=== PATIENT | female | born 2000 | race African-American/Black ===

== ENCOUNTER 2021-01-23 10:30 | Day surgery (SDC) | payer OTHER, SELFPAY ==
[2021-01-23 11:38] LABS: Bilirubin Neg (Negative); Blood, Urine 25 (Negative); Clarity Slightly Cloudy (Clear); Glucose, Urine (Dipstick) Normal (Negative); Ketone, Urine 5 mg/dL (Negative); Leukocyte 25 (Negative); Nitrite Negative (Negative); Protein, Urine (Dipstick) 30 mg/dl (Neg-Trace); Specific Gravity, Urine 1.025 (1.002-1.036)
[2021-01-23 11:44] LABS: Urine Culture Reflex No No
[2021-01-23 11:49] LABS: Bacteria/HPF 3+ HPF (None Seen); Squamous Epithelial 21-50 HPF (0-3); Transitional Epithelial 0-3 HPF (None Seen)
[2021-01-23 14:15] LABS: #Eosinphils 0.1 10x3/uL (0.0-0.5); #Monocytes 0.5 10x3/uL (0.0-1.1); #Neutrophils 4.5 10x3/uL (1.5-8.4); %Basophils 0.3 % (0.0-2.0); %Eosinophils 1.2 % (0.0-6.0); %Monocytes 6.5 % (0.0-10.0); %Neutrophils 65.7 % (40.0-75.0); Hemoglobin 11.2 g/dL (12.0-15.5); Mean Corpuscular Hemoglobin 30.6 pg (27.0-33.0); Mean Corpuscular Volume 92.6 fl (81.6-98.3); Mean Platelet Volume 9.6 fl (7.4-10.4); Platelet Count 365 10x3/uL (150-450); RBC Distribution Width 12.7 % (11.5-14.5); Red Blood Cell (RBC) Count 3.66 10x6/uL (3.90-5.03); White Blood Cell (WBC) Count 6.9 10x3/uL (3.5-10.5)
[2021-01-23 14:16] LABS: ALT (SGPT) 9 U/L (8-55); AST (SGOT) 10 U/L (5-34); Albumin 3.5 g/dL (3.5-5.0); Alkaline Phosphatase 96 U/L (40-110); Anion Gap 12 mmol/L (10-20); BUN (Urea Nitrogen) 7 mg/dL (7.0-18.7); Bilirubin, Total 0.4 mg/dL (0.2-1.2); Calc. Creatinine Clearance 0 mL/min (70-130); Calcium 9.4 mg/dL (7.8-10.44); Carbon Dioxide 19 mmol/L (22-29); Chloride 108 mmol/L (98-107); Glucose 106 mg/dL (70-105); Potassium 3.7 mmol/L (3.5-5.1); Protein, Total 7.5 g/dL (6.0-8.3); Sodium 135 mmol/L (136-145)
[2021-01-23 15:25] LABS: Syphilis Antibody Nonreactive (Nonreactive); Syphilis Antibody Index 0.09 S/CO (<1.00 Non-Reactive)
== END 2021-01-23 15:15 | disposition home or self-care (01) ==
LOC: CSHLD/OP 10:30
PROVIDERS: ATTEND Family Medicine
DX: O10.013 Pre-existing essential hypertension complicating pregnancy, third trimester (principal); O24.419 Gestational diabetes mellitus in pregnancy, unspecified control; Z3A.31 31 weeks gestation of pregnancy; Z21 Asymptomatic human immunodeficiency virus [HIV] infection status; Z79.84 Long term (current) use of oral hypoglycemic drugs; Z79.899 Other long term (current) drug therapy
CPT/HCPCS: 80053; 81001; 84443; 85025; 86780; 87086; 93005; 93010

== ENCOUNTER 2021-03-10 08:48 | Outpatient (CLI) | payer OTHER ==
[2021-03-12 14:14] LABS: SARS-CoV-2 PCR by NAA Not Detected (NotDetected)
== END 2021-03-10 08:49 | disposition home or self-care (01) ==
LOC: CSHLAB 08:48
PROVIDERS: ATTEND Family Medicine
DX: Z20.822 Contact with and (suspected) exposure to COVID-19 (principal)
CPT/HCPCS: U0003; U0005

== ENCOUNTER 2021-03-14 17:58 | Inpatient (IN) | payer OTHER ==
[2021-03-14 19:13] VITALS: BMI 40.4
[2021-03-14] MEDS ORDERED: Ondansetron PF 4 MG/2 ML Vial IVP PRN ×2 (19:55→23:48)
[2021-03-14] MEDS ORDERED: hydrALAZINE 20 MG/ML VIAL SLOW IVP PRN (19:55)
[2021-03-14] MEDS ORDERED: Acetaminophen 500 MG TAB PO PRN (19:55)
[2021-03-14] MEDS ORDERED: Promethazine HCl 25 MG/ML VIAL IM PRN ×2 (19:55→23:48)
[2021-03-14] MEDS ORDERED: Lactated Ringer's 1,000 ML IV SCH ×2 (20:00→20:45)
[2021-03-14] MEDS ORDERED: Misoprostol 200 MCG TAB PR PRN (20:03)
[2021-03-14] MEDS ORDERED: Diphenoxylate HCl/Atropine Tablet PO PRN (20:03)
[2021-03-14] MEDS ORDERED: Carboprost 250 MCG/ML AMP IM PRN (20:03)
[2021-03-14] MEDS ORDERED: Ibuprofen 800 MG TAB PO PRN (20:03)
[2021-03-14] MEDS ORDERED: Lidocaine 1% (PF) 30 ML VIAL SC PRN (20:03)
[2021-03-14] MEDS ORDERED: HumaLOG 300 UNITS/3 ML VIAL SC PRN ×2 (20:08)
[2021-03-14] MEDS ORDERED: Dextrose 50% Abboject 50 ML SYRINGE SLOW IVP PRN (20:08)
[2021-03-14] MEDS ORDERED: Dextrose 5% in Water 1,000 ML IV PRN (20:08)
[2021-03-14 20:14] LABS: #Eosinphils 0.1 10x3/uL (0.0-0.5); #Monocytes 0.7 10x3/uL (0.0-1.1); #Neutrophils 4.5 10x3/uL (1.5-8.4); %Basophils 0.5 % (0.0-2.0); %Eosinophils 1.4 % (0.0-6.0); %Neutrophils 58.7 % (40.0-75.0); Hemoglobin 12.1 g/dL (12.0-15.5); Mean Corpuscular HGB CONC 33.5 g/dL (32.0-36.0); Mean Corpuscular Hemoglobin 31.3 pg (27.0-33.0); Mean Corpuscular Volume 93.5 fl (81.6-98.3); Mean Platelet Volume 10.5 fl (7.4-10.4); Platelet Count 403 10x3/uL (150-450); RBC Distribution Width 13.4 % (11.5-14.5); Red Blood Cell (RBC) Count 3.86 10x6/uL (3.90-5.03); White Blood Cell (WBC) Count 7.7 10x3/uL (3.5-10.5)
[2021-03-14] MEDS ORDERED: NS w/ Oxytocin 30 units 500 ML IV SCH (20:15)
[2021-03-14] MEDS ORDERED: Penicillin G Potassium 5 MILL.UNITS in Sodium Chloride 0.9% 100 ML IVPB SCH (20:15)
[2021-03-14] MEDS ORDERED: Zidovudine 200 MG/20 ML VIAL IVPB SCH ×2 (20:15→21:15)
[2021-03-14 20:26] LABS: ALT (SGPT) 13 U/L (8-55); AST (SGOT) 13 U/L (5-34); Albumin 3.6 g/dL (3.5-5.0); Alkaline Phosphatase 155 U/L (40-110); Anion Gap 14 mmol/L (10-20); BUN (Urea Nitrogen) 10 mg/dL (7.0-18.7); Bilirubin, Total 0.4 mg/dL (0.2-1.2); Calc. Creatinine Clearance 246 mL/min (70-130); Calcium 9.9 mg/dL (7.8-10.44); Carbon Dioxide 19 mmol/L (22-29); Chloride 105 mmol/L (98-107); Globulin 4.2 g/dL (2.4-3.5); Glucose 79 mg/dL (70-105); Potassium 4.4 mmol/L (3.5-5.1); Protein, Total 7.8 g/dL (6.0-8.3); Sodium 134 mmol/L (136-145)
[2021-03-14 20:43] LABS: Hep B Surf Ag Non-Reactive S/CO (NonReactive); Syphilis Antibody Nonreactive (Nonreactive); Syphilis Antibody Index 0.07 S/CO (<1.00 Non-Reactive)
[2021-03-14 20:44] LABS: HBSAg Index 0.16 S/CO (0-0.99)
[2021-03-14] MEDS ORDERED: Labetalol 100 MG TAB PO SCH (21:00)
[2021-03-14] MEDS ORDERED: Calcium Gluc 4.6 MEQ/10 ML (100 MG/ML) SLOW IVP PRN (21:47)
[2021-03-14] MEDS ORDERED: Magnesium Sulfate 20 gm/500 ml 20 GM/500 ML BAG ONE (21:51)
[2021-03-14] MEDS ORDERED: DEXTROSE 5% IVPB SCH (22:00)
[2021-03-14] MEDS ORDERED: WATER IVPB SCH (22:00)
[2021-03-14] MEDS ORDERED: ZIDOVUDINE IVPB SCH (22:00)
[2021-03-14] MEDS ORDERED: Magnesium Sulfate 20 gm/500 ml 20 GM/500 ML BAG IVPB SCH (22:00)
[2021-03-14] MEDS ORDERED: Magnesium Sulfate 20 GM/WATER 500 ML BAG IVPB SCH (22:00)
[2021-03-14] MEDS ORDERED: Ondansetron PF 4 MG/2 ML Vial ONE (22:25)
[2021-03-14] MEDS ORDERED: Morphine PF 10 MG/10 ML VIAL ONE (22:25)
[2021-03-14] MEDS ORDERED: Oxytocin 10 UNITS/ML VIAL ONE (22:26)
[2021-03-14] MEDS ORDERED: Zidovudine 400 MG in Dextrose 5% in Water 250 ML IVPB SCH (23:00)
[2021-03-14] MEDS ORDERED: Communication Order-Pharmacy FS SCH (23:45)
[2021-03-14] MEDS ORDERED: Ketorolac Tromethamine 30 MG/ML VIAL IVP SCH (23:45)
[2021-03-14] MEDS ORDERED: diphenhydrAMINE 50 MG/ML VIAL IVP PRN (23:48)
[2021-03-14] MEDS ORDERED: Naloxone HCl 0.4 mg/ml Vial IV PRN (23:48)
[2021-03-14] MEDS ORDERED: Naloxone HCl 0.4 mg/ml Vial IVP PRN ×2 (23:48)
[2021-03-14] MEDS ORDERED: Hydrocerin (Eucerin) Cream 120 gm Jar TOP PRN (23:48)
[2021-03-14] MEDS ORDERED: Ondansetron HCl/PF 4 MG/2 ML Vial IVP PRN (23:48)
[2021-03-14] MEDS ORDERED: Meperidine HCl/PF 25 MG/ML VIAL SLOW IVP PRN (23:48)
[2021-03-14] MEDS ORDERED: Fentanyl 100 MCG/2 ML VIAL SLOW IVP PRN (23:48)
[2021-03-14] MEDS ORDERED: Promethazine HCl 25 MG SUPP PR PRN (23:48)
[2021-03-14] MEDS ORDERED: Ketorolac Tromethamine 30 MG/ML VIAL IVP PRN (23:48)
[2021-03-15] MEDS ORDERED: Penicillin G 2.5 MILL.units 2.5 MILL.UNITS in Premix Bag 1 BAG IVPB SCH (02:00)
[2021-03-15] MEDS ORDERED: metFORMIN 500 MG TAB PO SCH (08:00)
[2021-03-15] MEDS ORDERED: Acetaminophen 325 MG TAB PO PRN (08:57)
[2021-03-15] MEDS ORDERED: Lanolin Ointment 7 GM TUBE TOP PRN (08:57)
[2021-03-15] MEDS ORDERED: hydrALAZINE 20 MG/ML VIAL SLOW IVP PRN (08:57)
[2021-03-15] MEDS ORDERED: Ondansetron PF 4 MG/2 ML Vial IVP PRN (08:57)
[2021-03-15] MEDS ORDERED: Magnesium Sulfate 20 gm/500 ml 20 GM/500 ML BAG IVPB SCH ×2 (08:57→18:45)
[2021-03-15] MEDS ORDERED: Simethicone Chewable 80 MG TAB PO PRN (08:57)
[2021-03-15] MEDS ORDERED: Calcium Gluconate 4.6 MEQ in Sodium Chloride 0.9% 100 ML IVPB PRN (08:57)
[2021-03-15] MEDS ORDERED: diphenhydrAMINE 25 MG CAP PO PRN (08:57)
[2021-03-15] MEDS ORDERED: Prenatal Vitamin 1 TAB PO SCH (09:00)
[2021-03-15] MEDS: Emtricitabine/Tenofovir 200-300 MG TAB PO SCH (10:04)
[2021-03-15] MEDS: Raltegravir Potassium 400 MG TAB PO SCH ×2 (10:05→21:45)
[2021-03-15 11:02] LABS: pH (Cord, venous) 7.145 (7.250-7.350)
[2021-03-15] MEDS ORDERED: HYDROcodone/Acetaminophen 5/325 mg Tablet PO PRN (11:45)
[2021-03-15] MEDS ORDERED: Magnesium Sulfate 20 gm/500 ml 20 GM/500 ML BAG ONE (17:20)
[2021-03-15 18:00] LABS: Magnesium 4.4 mg/dL (1.6-2.6)
[2021-03-15] MEDS: Labetalol 100 MG TAB PO SCH (19:42)
[2021-03-15] MEDS: Ferrous Sulfate 325 MG TAB PO SCH (21:44)
[2021-03-16] MEDS: Ibuprofen 800 MG TAB PO SCH ×3 (05:12→21:00)
[2021-03-16 05:28] LABS: Hemoglobin 10.7 g/dL (12.0-15.5); Mean Corpuscular HGB CONC 33.9 g/dL (32.0-36.0); Mean Corpuscular Hemoglobin 31.4 pg (27.0-33.0); Mean Corpuscular Volume 92.7 fl (81.6-98.3); Mean Platelet Volume 9.9 fl (7.4-10.4); Platelet Count 318 10x3/uL (150-450); RBC Distribution Width 13.4 % (11.5-14.5); Red Blood Cell (RBC) Count 3.41 10x6/uL (3.90-5.03); White Blood Cell (WBC) Count 6.5 10x3/uL (3.5-10.5)
[2021-03-16] MEDS: Ferrous Sulfate 325 MG TAB PO SCH ×3 (08:12→21:05)
[2021-03-16] MEDS: Prenatal Vitamin 1 TAB PO SCH ×2 (08:31→08:45)
[2021-03-16] MEDS: Emtricitabine/Tenofovir 200-300 MG TAB PO SCH (08:45)
[2021-03-16] MEDS: HYDROcodone/Acetaminophen 5/325 mg Tablet PO PRN ×2 (08:45→15:41)
[2021-03-16] MEDS: Raltegravir Potassium 400 MG TAB PO SCH ×2 (08:45→21:00)
[2021-03-16] MEDS: metFORMIN 500 MG TAB PO SCH ×2 (08:45→16:48)
[2021-03-16] MEDS: Labetalol 100 MG TAB PO SCH ×2 (08:45→20:59)
[2021-03-16] MEDS ORDERED: Boostrix 0.5 ML (Tdap) VIAL IM ONE (08:57)
[2021-03-17] MEDS: Ibuprofen 800 MG TAB PO SCH (05:02)
[2021-03-17] MEDS: Emtricitabine/Tenofovir 200-300 MG TAB PO SCH (08:27)
[2021-03-17] MEDS: Prenatal Vitamin 1 TAB PO SCH (08:27)
[2021-03-17] MEDS: metFORMIN 500 MG TAB PO SCH (08:27)
[2021-03-17] MEDS: Raltegravir Potassium 400 MG TAB PO SCH (08:28)
[2021-03-17] MEDS: Ferrous Sulfate 325 MG TAB PO SCH (08:28)
[2021-03-17] MEDS ORDERED: Labetalol 100 MG TAB PO SCH (09:00)
[2021-03-17] MEDS ORDERED: Polyethylene Glycol 3350 17 GM Packet PO SCH (11:15)
[2021-03-17 12:07] VITALS: BP 137/65; TEMP 98.2
== END 2021-03-17 14:25 | disposition home or self-care (01) | DRG 787 ==
LOC: CSHLD 17:58 → CSHPP 03-16 02:41
PROVIDERS: ADMIT Emergency Medicine; ATTEND Emergency Medicine
PROC: 10D00Z1 Extraction of Products of Conception, Low, Open Approach (ICD-10-PCS; principal; 2021-03-15)
DX: O11.4 Pre-existing hypertension with pre-eclampsia, complicating childbirth (principal); Z37.0 Single live birth; Z3A.38 38 weeks gestation of pregnancy; O98.72 Human immunodeficiency virus [HIV] disease complicating childbirth; B20 Human immunodeficiency virus [HIV] disease; O10.92 Unspecified pre-existing hypertension complicating childbirth; O99.824 Streptococcus B carrier state complicating childbirth; O24.425 Gestational diabetes mellitus in childbirth, controlled by oral hypoglycemic drugs; O76 Abnormality in fetal heart rate and rhythm complicating labor and delivery; Z79.899 Other long term (current) drug therapy; Z79.82 Long term (current) use of aspirin; Z82.79 Family history of other congenital malformations, deformations and chromosomal abnormalities
CPT/HCPCS: 36415; 51702; 80053; 82570; 82805; 83735; 84156; 85025; 85027; 86780; 86850; 86900; 86901; 87340; 88307; 93005; 93010; J2274; J2405; J2590; J3475; J3485; J7070; J7120

== ENCOUNTER 2023-02-18 17:00 | Inpatient (IN) | payer OTHER ==
[2023-02-19] MEDS ORDERED: Carboprost 250 MCG/ML AMP IM PRN (15:29)
[2023-02-19] MEDS ORDERED: Ondansetron PF 4 MG/2 ML Vial IVP PRN ×4 (15:29→21:31)
[2023-02-19] MEDS ORDERED: Misoprostol 200 MCG TAB PR PRN ×2 (15:29→21:31)
[2023-02-19] MEDS ORDERED: Promethazine HCl 25 MG/ML VIAL IM PRN ×3 (15:29→21:31)
[2023-02-19] MEDS ORDERED: Famotidine/PF 20 mg/2ml Vial SLOW IVP PRN (15:29)
[2023-02-19] MEDS ORDERED: Tranexamic Acid 1,000 MG/10 ML VIAL IVP PRN (15:29)
[2023-02-19] MEDS ORDERED: Bicitra 30 ML UDCUP PO PRN (15:29)
[2023-02-19] MEDS ORDERED: hydrALAZINE 20 MG/ML VIAL SLOW IVP PRN ×4 (15:29→21:31)
[2023-02-19] MEDS ORDERED: Lactated Ringer's 1,000 ML IV SCH (15:30)
[2023-02-19] MEDS ORDERED: CEFAZOLIN 2 GM in Sodium Chloride 0.9% 100 ML IVPB SCH (15:30)
[2023-02-19] MEDS ORDERED: Oxytocin 30 units/NS 500 ML 500 ML IV SCH ×2 (15:30→21:31)
[2023-02-19 15:47] VITALS: BMI 43.6
[2023-02-19] MEDS ORDERED: Naloxone HCl 0.4 mg/ml Vial IVP PRN ×2 (16:43)
[2023-02-19] MEDS ORDERED: Naloxone HCl 0.4 mg/ml Vial IV PRN (16:43)
[2023-02-19] MEDS ORDERED: Promethazine HCl 25 MG SUPP PR PRN (16:43)
[2023-02-19] MEDS ORDERED: diphenhydrAMINE 50 MG/ML VIAL IVP PRN (16:43)
[2023-02-19] MEDS ORDERED: Meperidine HCl/PF 25 MG/ML VIAL SLOW IVP PRN (16:43)
[2023-02-19] MEDS ORDERED: fentaNYL 50 mcg/mL 1 mL Vial SLOW IVP PRN (16:43)
[2023-02-19] MEDS ORDERED: Moisturizing Cream (Eucerin) 113 GM JAR TOP PRN (16:43)
[2023-02-19] MEDS ORDERED: Communication Order-Pharmacy FS SCH (16:45)
[2023-02-19] MEDS ORDERED: Phenylephrine 40 MG/NS 250 ML 250 ML ONE (16:50)
[2023-02-19] MEDS ORDERED: Morphine PF 10 MG/10 ML VIAL ONE (16:50)
[2023-02-19] MEDS ORDERED: fentaNYL 50 mcg/mL 1 mL Vial ONE (16:50)
[2023-02-19] MEDS ORDERED: Sodium Bicarbonate 2.5 MEQ/5 ML VIAL ONE (16:50)
[2023-02-19 16:55] LABS: Hematocrit 34.9 % (34.9-44.5); Hemoglobin 11.9 g/dL (12.0-15.5); Mean Corpuscular HGB CONC 34.1 g/dL (32.0-36.0); Mean Corpuscular Hemoglobin 31.6 pg (27.0-33.0); Mean Corpuscular Volume 92.8 fl (81.6-98.3); Mean Platelet Volume 9.9 fl (7.4-10.4); Platelet Count 369 10x3/uL (150-450); Red Blood Cell (RBC) Count 3.76 10x6/uL (3.90-5.03); White Blood Cell (WBC) Count 6.6 10x3/uL (3.5-10.5)
[2023-02-19 16:56] LABS: Glucose 81 mg/dL (70-105)
[2023-02-19 17:08] LABS: HBSAg Index 0.16 S/CO (0-0.99); Hep B Surf Ag - L&D Non-Reactive S/CO (NonReactive)
[2023-02-19 17:09] LABS: Syphilis Antibody Nonreactive (Nonreactive)
[2023-02-19] MEDS ORDERED: Ondansetron PF 4 MG/2 ML Vial ONE (17:34)
[2023-02-19] MEDS ORDERED: Dexamethasone 4 mg/ml Vial ONE (17:34)
[2023-02-19] MEDS ORDERED: Carboprost 250 MCG/ML AMP ONE (17:57)
[2023-02-19] MEDS ORDERED: Tranexamic Acid 1,000 MG/10 ML VIAL ONE (17:57)
[2023-02-19] MEDS ORDERED: Oxytocin 30 units/NS 500 ML 0 ML ONE (17:57)
[2023-02-19] MEDS ORDERED: Misoprostol 200 MCG TAB ONE (17:57)
[2023-02-19] MEDS ORDERED: Methylergonovine 0.2 MG/ML VIAL ONE (17:57)
[2023-02-19] MEDS ORDERED: Ketorolac Tromethamine 30 MG/ML VIAL ONE (18:12)
[2023-02-19] MEDS ORDERED: Oxytocin 10 UNITS/ML VIAL ONE (18:12)
[2023-02-19 18:27] LABS: Analyzer IN Cardio CS NICU; Critical Notified By: Udy, RRT; RapidComm Collect By L & D
[2023-02-19 18:29] LABS: Analyzer IN Cardio CS NICU; Critical Notified By: Udy, RRT; RapidComm Collect By L&D; pH (Cord, venous) 7.211 (7.250-7.350)
[2023-02-19] MEDS ORDERED: diphenhydrAMINE 25 MG CAP PO PRN (21:31)
[2023-02-19] MEDS ORDERED: Boostrix 0.5 ML (Tdap) VIAL (>/=7 yrs of age) IM ONE (21:31)
[2023-02-19] MEDS ORDERED: Labetalol HCl 100 MG/20 ML VIAL SLOW IVP PRN ×2 (21:31)
[2023-02-19] MEDS ORDERED: Docusate 100 MG CAP PO SCH (22:00)
[2023-02-19] MEDS ORDERED: Labetalol HCl 100 MG TAB PO SCH (22:00)
[2023-02-19] MEDS ORDERED: Ferrous Sulfate 325 MG TAB PO SCH (22:00)
[2023-02-20] MEDS: Ketorolac Tromethamine 30 MG/ML VIAL IVP SCH ×4 (00:19→17:28)
[2023-02-20 03:48] LABS: Hematocrit 32.8 % (34.9-44.5); Hemoglobin 11.2 g/dL (12.0-15.5); Mean Corpuscular HGB CONC 34.1 g/dL (32.0-36.0); Mean Corpuscular Hemoglobin 31.7 pg (27.0-33.0); Mean Corpuscular Volume 92.9 fl (81.6-98.3); Platelet Count 332 10x3/uL (150-450); Red Blood Cell (RBC) Count 3.53 10x6/uL (3.90-5.03); White Blood Cell (WBC) Count 13.6 10x3/uL (3.5-10.5)
[2023-02-20] MEDS ORDERED: Lorazepam 2 MG/ML VIAL SLOW IVP PRN (04:45)
[2023-02-20] MEDS: Simethicone Chewable 80 MG TAB PO PRN ×3 (08:13→20:57)
[2023-02-20] MEDS: Acetaminophen 500 MG TAB PO SCH ×2 (08:14→17:29)
[2023-02-20] MEDS: Docusate 100 MG CAP PO SCH ×2 (08:14→20:57)
[2023-02-20] MEDS: Labetalol HCl 100 MG TAB PO SCH ×2 (08:14→20:57)
[2023-02-20] MEDS: Prenatal Vitamin 1 TAB PO SCH (08:14)
[2023-02-20] MEDS: Ferrous Sulfate 325 MG TAB PO SCH ×2 (08:15→21:00)
[2023-02-20] MEDS ORDERED: EMTRICITABINE PO SCH ×2 (09:00→21:00)
[2023-02-20] MEDS ORDERED: (Dolutegravir Sodium [Tivicay] 50 MG Tablet) PO SCH ×2 (09:00→21:00)
[2023-02-20] MEDS ORDERED: TENOFOV ALAFENAM PO SCH ×2 (09:00→21:00)
[2023-02-20] MEDS: Ibuprofen 800 MG TAB PO SCH ×2 (13:46→20:57)
[2023-02-21] MEDS: Acetaminophen 500 MG TAB PO SCH ×2 (02:00→08:24)
[2023-02-21] MEDS: Ibuprofen 800 MG TAB PO SCH (05:19)
[2023-02-21] MEDS: Simethicone Chewable 80 MG TAB PO PRN (05:19)
[2023-02-21] MEDS: Prenatal Vitamin 1 TAB PO SCH (08:24)
[2023-02-21] MEDS: Docusate 100 MG CAP PO SCH (08:24)
[2023-02-21] MEDS: Labetalol HCl 100 MG TAB PO SCH (08:24)
[2023-02-21] MEDS: Ferrous Sulfate 325 MG TAB PO SCH (08:25)
[2023-02-21 11:42] VITALS: BP 138/71; TEMP 98.2
== END 2023-02-21 12:55 | disposition home or self-care (01) | DRG 787 ==
LOC: CSHLD 02-19 15:28 → CSHPP 02-19 21:46
PROVIDERS: ADMIT Obstetrics & Gynecology; ATTEND Obstetrics & Gynecology
PROC: 10D00Z1 Extraction of Products of Conception, Low, Open Approach (ICD-10-PCS; principal; 2023-02-19)
DX: O34.211 Maternal care for low transverse scar from previous cesarean delivery (principal); O10.92 Unspecified pre-existing hypertension complicating childbirth; O98.72 Human immunodeficiency virus [HIV] disease complicating childbirth; Z21 Asymptomatic human immunodeficiency virus [HIV] infection status; O24.425 Gestational diabetes mellitus in childbirth, controlled by oral hypoglycemic drugs; E66.9 Obesity, unspecified; O99.214 Obesity complicating childbirth; O99.824 Streptococcus B carrier state complicating childbirth; N73.6 Female pelvic peritoneal adhesions (postinfective); O99.892 Other specified diseases and conditions complicating childbirth; Z37.0 Single live birth; Z3A.38 38 weeks gestation of pregnancy; Z79.899 Other long term (current) drug therapy
CPT/HCPCS: 36415; 36416; 51702; 82805; 82947; 85027; 86780; 86850; 86900; 86901; 87340; J1100; J1885; J2274; J2405; J2590; J3010; J3490; J7120

== ENCOUNTER 2023-02-25 12:26 | Emergency (ER) | payer OTHER ==
[2023-02-25] MEDS ORDERED: Magnesium 2 GM/50 ML BAG (IN WATER) ONE ×4 (12:54→19:41)
[2023-02-25] MEDS ORDERED: Adenosine 6 MG/2 ML VIAL ONE (12:55)
[2023-02-25] MEDS ORDERED: fentaNYL 50 mcg/mL 1 mL Vial ONE (12:57)
[2023-02-25] MEDS ORDERED: dilTIAZem 25 MG/5 ML VIAL ONE (13:06)
[2023-02-25 13:24] LABS: #Basophils 0.1 10x3/uL (0.0-0.2); #Eosinphils 0.2 10x3/uL (0.0-0.5); #Monocytes 0.4 10x3/uL (0.0-1.1); #Neutrophils 5.2 10x3/uL (1.5-8.4); %Basophils 0.6 % (0.0-2.0); %Eosinophils 3.1 % (0.0-6.0); %Lymphocytes 24.3 % (18.0-47.0); %Monocytes 5.5 % (0.0-10.0); Hematocrit 36.4 % (34.9-44.5); Hemoglobin 12.1 g/dL (12.0-15.5); Mean Corpuscular HGB CONC 33.2 g/dL (32.0-36.0); Mean Corpuscular Hemoglobin 31.4 pg (27.0-33.0); Mean Corpuscular Volume 94.5 fl (81.6-98.3); Mean Platelet Volume 10.2 fl (7.4-10.4); Platelet Count 406 10x3/uL (150-450); RBC Distribution Width 13.1 % (11.5-14.5); Red Blood Cell (RBC) Count 3.85 10x6/uL (3.90-5.03); White Blood Cell (WBC) Count 7.8 10x3/uL (3.5-10.5)
[2023-02-25 13:32] LABS: ALT (SGPT) 23 U/L (8-55); AST (SGOT) 22 U/L (5-34); Albumin 3.4 g/dL (3.5-5.0); Alkaline Phosphatase 98 U/L (40-110); Anion Gap 18 mmol/L (10-20); BUN (Urea Nitrogen) 9 mg/dL (7.0-18.7); Bilirubin, Total 0.7 mg/dL (0.2-1.2); Calc. Creatinine Clearance 0 mL/min (70-130); Calcium 9.5 mg/dL (7.8-10.44); Carbon Dioxide 20 mmol/L (22-29); Chloride 107 mmol/L (98-107); Estimated GFR 97; Globulin 3.6 g/dL (2.4-3.5); Glucose 94 mg/dL (70-105); Magnesium 1.7 mg/dL (1.6-2.6); Potassium 4.4 mmol/L (3.5-5.1); Sodium 141 mmol/L (136-145)
[2023-02-25 13:38] LABS: Troponin I 0.015 ng/mL (< 0.028)
[2023-02-25] MEDS ORDERED: Digoxin 0.5 MG/2 ML AMP ONE (14:11)
[2023-02-25 14:16] LABS: Bilirubin Neg (Negative); Blood, Urine 50 (Negative); Clarity Clear (Clear); Glucose, Urine (Dipstick) Normal (Negative); Ketone, Urine Negative (Negative); Leukocyte 25 (Negative); Nitrite Negative (Negative); Protein, Urine (Dipstick) 15 mg/dl (Neg-Trace); Urobilinogen Normal mg/dL (Less than 2)
[2023-02-25 14:37] LABS: CAUTI Indications for Culture Dysuria,urgency,freq; RBC/HPF 0-3 HPF (0-3); WBC/HPF 0-3 HPF (0-3)
[2023-02-25 14:38] LABS: Bacteria/HPF Rare-Few HPF (None Seen); Urine Culture Reflex No No
== END 2023-02-25 20:13 | disposition short-term general hospital (02) ==
LOC: CSHERS 12:26 → EEVIPCON 12:26 → CSHERS 20:13
DX: I47.10 Supraventricular tachycardia, unspecified (principal); O14.95 Unspecified pre-eclampsia, complicating the puerperium; Z21 Asymptomatic human immunodeficiency virus [HIV] infection status
CPT/HCPCS: 80053; 81001; 83735; 84484; 85025; 93005; 93010; 96374; 96375; 96376; J0153; J1160; J3010; J3475